=== PATIENT | male | born 1990 | race African-American/Black ===

== ENCOUNTER 2018-06-24 10:39 | Emergency (ER) | payer OTHER ==
[~2018-06-24] VITALS: Ht 180.3 cm; Wt 142.9 kg
[~2018-06-24 10:39] MED LIST: DEXT15CA18 PO; HYDR-2155 PO
[2018-06-24 10:46] VITALS: BP 130/87
[2018-06-24] MEDS ORDERED: DIPHTH,PERTUSS(ACELL),TET TOX 0.5 ML DISP.SYRIN. VAX IM ONE (11:00)
--- NOTE | 2018-06-24 11:18 | PHYS DOC ---
Past History Past Medical History: Other Past Surgical History: No Surgical History Alcohol Use: None Drug Use: None Adult General Chief Complaint Chief Complaint: LACERATION/AVULSION HPI HPI Patient is a 27 year old right-handed male who presents with pinning of laceration of left thumb. Patient states he was at work and cutting a cantaloupe and cut tip of left thumb. Patient denies other injuries. Patient is not up-to-date with tetanus immunization. Review of Systems Review of Systems Constitutional: Denies fever or chills [] Eyes: Denies change in visual acuity, redness, or eye pain [] HENT: Denies nasal congestion or sore throat [] Respiratory: Denies cough or shortness of breath [] Cardiovascular: No additional information not addressed in HPI [] GI: Denies abdominal pain, nausea, vomiting, bloody stools or diarrhea [] : Denies dysuria or hematuria [] Musculoskeletal: Denies back pain or joint pain [] Integument: Denies rash or skin lesions [] Neurologic: Denies headache, focal weakness or sensory changes [] Endocrine: Denies polyuria or polydipsia [] All other systems were reviewed and found to be within normal limits, except as documented in this note. Current Medications Current Medications Current Medications Medications (Trade) Dose Ordered Sig/Jayshree Start Time Stop Time Status Last Admin Dose Admin Diphtheria/ Tetanus/Acell Pertussis (Boostrix) 0.5 ml ONCE ONCE 06/24/18 11:00 06/24/18 11:02 DC Allergies Allergies Allergies Coded Allergies Type Severity Reaction Last Updated Verified No Known Drug Allergies 06/24/18 No Physical Exam Physical Exam Constitutional: Well developed, well nourished, no acute distress, non-toxic appearance. [] HENT: Normocephalic, atraumatic Eyes: PERRLA, EOMI, conjunctiva normal, no discharge. [] Neck: Normal range of motion, no tenderness, supple, no stridor. [] Cardiovascular:Heart rate regular rhythm, no murmur [] Lungs & Thorax: Bilateral breath sounds clear to auscultation [] Skin: Warm, dry, no erythema, no rash. [] Back: No tenderness, no CVA tenderness. [] Extremities: Laceration of tip of left thumb with mild bleeding without change of color of flap skin to pale. Neurologic: Alert and oriented X 3, normal motor function, normal sensory function, no focal deficits noted. [] Psychologic: Affect normal, judgement normal, mood normal. [] Current Patient Data Vital Signs Vital Signs Date Time Temp Pulse Resp B/P (MAP) Pulse Ox O2 Delivery O2 Flow Rate FiO2 06/24/18 10:46 98.5 62 20 100 Room Air EKG EKG [] Radiology/Procedures Radiology/Procedures [] Course & Med Decision Making Course & Med Decision Making Evaluation of patient in ER showed 27-year-old right-handed male patient with laceration of left thumb that was repaired with Dermabond and Steri-Strip. Tdap was given in ER. Dragon Disclaimer Dragon Disclaimer This electronic medical record was generated, in whole or in part, using a voice recognition dictation system. Departure Departure: Impression: Primary Impression: Laceration of left thumb Disposition: HOME, SELF-CARE (at 1117) Condition: STABLE Referrals: TIGRE SIMPSON MD (PCP) Patient Instructions: Fingertip Laceration, Tissue Adhesive Wound Care Additional Instructions: Keep wound clean and dry Follow-up with your primary care physician in 3-5 days Return to ER if not getting better Laceration Repair Lac Repair Indication: Left thumb laceration Procedure: The patient was placed in the appropriate position and flap laceration of left thumb was repaired with Dermabond and Steri-Strip. Total repaired wound length: 1 cm Other Items: [OTHER ITEMS] The patient tolerated the procedure well Complications: None ATILIO ANDRADE MD Jun 24, 2018 11:18
== END 2018-06-24 11:30 | disposition home or self-care (01) ==
LOC: ER 10:39
DX: S61.012A Laceration without foreign body of left thumb without damage to nail, initial encounter (principal); W26.0XXA Contact with knife, initial encounter; Y93.89 Activity, other specified; Y92.89 Other specified places as the place of occurrence of the external cause; Y99.8 Other external cause status
CPT/HCPCS: 12001; 90471; 90715; 99283-25